=== PATIENT | male | born 1960 | race American Indian/Alaskan Native ===

== ENCOUNTER 2018-05-03 13:58 | Outpatient (CLI) | payer MEDICARE, OTHER ==
--- NOTE | 2018-05-03 14:34 | XRay Report ---
Left total 3 views: History: Left elbow pain. Findings: No articular abnormality. No joint effusion. There is 2 mm faint calcification noted at the region of the lateral epicondyles. No bony abnormality. Impression: Calcification lateral epicondyle.
== END 2018-05-03 13:59 | disposition home or self-care (01) ==
LOC: SPVIMAG 13:58
PROVIDERS: ATTEND Surgery Plastic and Reconstructive Surgery
DX: M25.822 Other specified joint disorders, left elbow (principal)